=== PATIENT | male | born 1985 | race Caucasian/White ===

== ENCOUNTER 2024-04-15 10:43 | Inpatient (IN) | payer MEDICARE, MEDICAID, SELFPAY ==
[2024-04-15 10:44] VITALS: BP 90/78; PULSE 121; RESP 18; TEMP 36.1; O2SAT 96
--- NOTE | 2024-04-15 11:22 | RAD_ITS ---
STUDY: X-RAY - SKULL SHUNTOGRAM REASON FOR EXAM: Male, 39 years old. headaches, shunt TECHNIQUE: 2 views of the skull and 3 images of the chest, abdomen, and pelvis. COMPARISON: Head CT dated April 15, 2024 FINDINGS: The bilateral HOME IMPROVEMENT ADVISOR shunt catheter tubes are intact without evidence of fracture or significant kinking or displacement. Calcifications are seen around the tubing across the chest and abdomen regions. There is no demonstrated soft tissue swelling. Normal osseous calvarium. Normal visualized facial bones. Normal visualized paranasal sinuses. RAD/Shuntogram/Prev Placed Shunt IMPRESSION: Intact HOME IMPROVEMENT ADVISOR shunt catheters Electronically Signed: Sam Caicedo MD at 12:46 EDT ,
--- NOTE | 2024-04-15 11:22 | CT_ITS ---
STUDY: CT BRAIN WITHOUT CONTRAST REASON FOR EXAM: Male, 39 years old. torrez, lack of balance, ht shunt, hypotension, cerebral palsy RADIATION DOSAGE (If Supplied By Facility): CTDIvol = ( 44.99 ) mGy, DLP = ( 796.11 ) mGycm TECHNIQUE: Transaxial CT imaging of the brain was performed without administration of intravenous contrast material. Individualized dose optimization techniques were used for this CT. COMPARISON: None. FINDINGS: * Right and left REAL ESTATE SALES SUPERVISOR shunt catheters via craniotomy defects at the parieto-occipital junction. * The 2 REAL ESTATE SALES SUPERVISOR shunt catheters on the right terminates at the ostium of the occipital horn of lateral ventricle and on the left in the foramen Monro * Asymmetric hydrocephalus which is mild on the right and moderate on the left, although there is greater parenchymal volume loss on the left with hemicerebral atrophy and chronic hypodensity in the white matter interfaces-so this is probably] vacuo dilatation rather than completely hydrocephalus. * Significant dilatation of the fourth ventricle and global cerebellar atrophy * No visualized intracranial hemorrhage * No demonstrated acute infarct * No midline shift There is mucoperiosteal inflammatory disease of the paranasal sinuses consistent with mild chronic sinusitis. CT/Brain/Head without Contrast IMPRESSION: No acute process. Multitude of chronic abnormalities. I have no baseline or to make any comparisons or interval changes, referral to neurology or neurosurgery service for consultation is recommended.. Electronically Signed: Sam Caicedo MD at 12:37 EDT ,
--- NOTE | 2024-04-15 11:34 | EX.ED.DYSGE1 ---
HPI History of Present Illness Chief Complaint: Headache Informant: patient and friend Onset/Context/Timing Onset: Weeks Narrative Narrative: Patient presents secondary to headaches over the past 1 to 2 weeks. He reports generalized headache he has been taking chewable Tylenol for. He does have a history of cerebral palsy and has a shunt in place. He was seen by his neurologist this morning, Dr. Carpio. He was noted to have evidence of dehydration and hypotension and was sent to the emergency room. Dr. Carpio recommended lab work, CT scan, IV fluids. He does note the patient is on carbamazepine which may cause hyponatremia. Patient notes that he has not been eating and drinking much over the past week or 2 because he feels like his balance is off and he is afraid he will drop his food if he goes to the kitchen to get anything. [facility] Medical History Epilepsy Generalized seizure disorder Seizures Hydrocephalus Cerebral palsy Home Medications ?Medication ?Instructions ?Recorded ?Last Taken ?Type carbamazepine 100 mg chewable 250 mg (2.5 x 100 mg) PO TID #675 10/31/23 Unknown Rx tablet tabs mecobalamin (vitamin B12) 1,000 1,000 mcg PO DAILY #90 tabs 10/31/23 Unknown Rx mcg chewable tablet (B12 Active) Allergy/AdvReac Type Severity Reaction Status Date / Time No Known Allergies Allergy Verified 04/15/24 10:44 Social History Smoking Status: Never smoker second hand exposure: No alcohol intake: never substance use type: does not use what type of physical activity do you participate in: none jeannine/anabaptist: None seatbelt use: always do you feel safe at home: Yes ROS ROS ED Constitutional Constitutional ED: Denies chills or fever(s) Eyes Eyes: Denies discharge from eye(s) ENT ENT ED: Reports other Details: Dry mouth ; Denies discharge from eye(s), rhinorrhea or sore throat Cardiovascular Cardiovascular: Denies chest pain or palpitations Respiratory/Chest Respiratory/Chest: Denies cough or dyspnea Gastrointestinal Gastrointestinal: Denies abdominal pain, nausea or vomiting Musculoskeletal Musculoskeletal: Denies back pain or extremity pain Integumentary Denies Abrasions or rash Neurologic Neurologic: Reports headache(s), weakness and other Details: Generalized weakness Psychiatric Psychiatric: Denies anxiety or depression Allergic/Immunologic Allergic/Immunologic ED: Denies lip swelling or urticaria EXAM Physical Exam Const Vital Signs: 04/15/24 10:44 04/15/24 11:44 04/15/24 13:00 Temperature 97 F L Temperature Source Temporal Pulse Rate 121 H 90 85 Respiratory Rate 18 16 14 Blood Pressure 90/78 132/84 H 113/76 Blood Pressure Mean 82 100 88 Pulse Ox 96 98 98 Oxygen Delivery Method Room Air Room Air Room Air Constitutional Narrative: Patient thin and disheveled. HEENT Reports dry mucous membranes Mouth ED: Yes dry mucous membranes Mouth: dry mucous membranes Eyes EOMs intact bilaterally Chest Wall inspection of chest normal and palpation of chest normal Resp normal respiratory effort and clear to auscultation bilaterally Cardio Rate: tachycardic GI non-tender Palpation: soft Extremity normal to inspection Neuro oriented x3 Neuro Narrative: Generalized weakness but no focal neurologic deficits appreciated. Skin no rashes or lesions noted MDM MDM MDM Narrative Medical decision making narrative: IV line established. Patient given IV fluids along with 15 mg of IV ketorolac. CT scan of the head obtained to evaluate the shunt as well as a shuntogram. Labwork obtained to evaluate for leukocytosis, anemia, and electrolyte derangement. Carbamazepine level also obtained. Lab Data Attestation: I reviewed the patient's lab results. Labs: Laboratory Results - last 24 hr 04/15/24 11:45 WBC 7.9 RBC 5.61 Hgb 16.3 Hct 48.9 MCV 87.2 MCH 29.1 MCHC 33.3 RDW Std Deviation 39.2 RDW Coeff of Nidia 12.3 Plt Count 315 MPV 10.6 Immature Gran % (Auto) 0.400 Neut % (Auto) 72.7 H Lymph % (Auto) 19.3 [place] % (Auto) 7.0 Eos % (Auto) 0.0 Baso % (Auto) 0.6 Absolute Neuts (auto) 5.8 Absolute Lymphs (auto) 1.53 Nucleated RBC % 0 Sodium 146 H Potassium 4.0 Chloride 110 H Carbon Dioxide 17.0 L Anion Gap 19 H BUN 37 H Creatinine 1.61 H Estim Creat Clear Calc 42.62 Est GFR (MDRD) Af Amer 61 Est GFR (MDRD) Non-Af 50 L BUN/Creatinine Ratio 23.0 H Glucose 104 Calcium 10.3 H Total Bilirubin 0.80 Direct Bilirubin 0.22 AST 11 L ALT 20 Alkaline Phosphatase 92 Total Protein 8.3 H Albumin 4.5 Globulin 3.8 Carbamazepine 12.0 Radiography Diagnostic Testing: Clinical Impression(s) from Imaging Studies Brain CT 04/15/24 11:22 IMPRESSION: No acute process. Multitude of chronic abnormalities. I have no baseline or to make any comparisons or interval changes, referral to neurology or neurosurgery service for consultation is recommended.. Electronically Signed: Sam Caicedo MD at 12:37 EDT , Shuntogram 04/15/24 11:22 IMPRESSION: Intact KNITTER OPERATOR shunt catheters Electronically Signed: Sam Caicedo MD at 12:46 EDT , Treatment and Re-Evaluation :: CBC was normal white count 7.9 with a hemoglobin of 16.3. 72% neutrophils noted. Chemistry studies significant for a sodium of 146, chloride 110, bicarb 17. Anion gap is elevated at 19. BUN is 37 and creatinine is 1.61. LFTs are unremarkable. Carbamazepine level is therapeutic at 12. I was able to find prior labs drawn from April 19, 2023 in the computer. At that time his creatinine was 0.87. His sodium was 138. CT scan of the head today reveals no acute process. There is noted to be asymmetric hydrocephalus which is mild on the right and moderate on the left. Significant dilatation of the fourth ventricle and global cerebellar atrophy noted. No evidence of hemorrhage and no midline shift. We do not have prior imaging available for comparison, however I was able to find a head CT report from September 2018 which describes the same changes that are seen on today's CT. On repeat evaluation patient states his headache is improved. Patient was initially hypotensive and tachycardic on arrival. His heart rate is currently 85 with a blood pressure of 113/76. I do feel he will require observation at least overnight for hydration and repeat labs. I will speak with the hospitalist. Discharge Plan Dx/Rx/DC Orders Clinical Impression: Dehydration, RHEA (acute kidney injury), Headache Disposition Disposition: Acute Care Hospital [facility]
[2024-04-15] MEDS: 0.9% Normal Saline (1000mL) 1,000 ML 1000 ML IV (11:42)
[2024-04-15] MEDS: Ketorolac 15 MG/ML Vial IV (11:42)
[2024-04-15 11:44] VITALS: BP 132/84; PULSE 90; RESP 16; O2SAT 98; BMI 17.7
[2024-04-15 11:58] LABS: Absolute Lymphocyte Count 1.53 X10^3/uL (0.83-4.51); Absolute Neutrophil Count 5.8 X10^3/uL (2.0-7.7); Basophil# 0.05 X10^3/uL; Basophil% 0.6 % (0-1); Hematocrit 48.9 % (40-54); Hemoglobin 16.3 g/dL (13.0-16.5); Lymphocyte # 1.53 X10^3/ul (0.83-4.51); Lymphocyte % 19.3 % (19-41); Mean Corp Hgb Conc 33.3 g/dL (32-36); Mean Corpuscular Hgb 29.1 pg (27.0-32.0); Mean Corpuscular Volume 87.2 fL (80-94); Mean Platelet Vol. 10.6 fl (6.2-12.0); Monocyte# 0.55 X10^3/uL; NRBC Flagged by Analyzer 0 % (0-5); Neutrophil # 5.75 X10^3/uL (2.7-7.7); Neutrophil % 72.7 % (47-70); Platelet Count 315 K/mm3 (150-450); RBC Distribution Width CV 12.3 % (11.6-14.6); RBC Distribution Width SD 39.2 fl (35.1-43.9); Red Blood Count 5.61 M/mm3 (4.6-6.2); White Blood Count 7.9 K/mm3 (4.4-11.0)
[2024-04-15 12:16] LABS: AST(SGOT) 11 U/L (15-37); Alanine Aminotransfer ALT/SGPT 20 U/L (16-61); Albumin, Serum 4.5 g/dL (3.2-5.0); Alkaline Phosphatase 92 U/L (45-117); Anion Gap 19 (5-15); BUN 37 mg/dL (7-18); Bilirubin, Direct 0.22 mg/dL (0.00-0.30); Calcium,Total 10.3 mg/dL (8.5-10.1); Chloride 110 mmol/L (98-107); Creatinine, Serum 1.61 mg/dL (0.70-1.30); EST Glomerular Filtration Rate 50 mL/min (>60); Est Glom Filt Rate - Afr Amer 61 mL/min (>60); Estimated Creatinine Clearance 42.62 ml/min; Globulin 3.8 g/dL (2.2-4.2); Glucose 104 mg/dL (74-106); Protein, Total 8.3 g/dL (6.4-8.2); Sodium Level 146 mmol/L (136-145)
[2024-04-15 13:00] VITALS: BP 113/76; PULSE 85; RESP 14; O2SAT 98
[2024-04-15] MEDS: 0.9% Normal Saline (1000mL) 1,000 ML 150 ML IV ×3 (14:39→23:39)
--- NOTE | 2024-04-15 14:46 | NURSING ---
MED SURG OBS KORAM DEHYDRATION, RHEA
--- NOTE | 2024-04-15 14:47 | PCM.HP.STD ---
HPI - General General Date of Admission: 04/15/24 Date of Service: 04/15/24 Chief Complaint: headache HPI Narrative KATARINA SESAY, is a 39 M with a past medical history as outlined including history of cerebral palsy, and congenital hydrocephalus, with a BRINE TANK SEPARATOR OPERATOR shunt in place who presents via the ED on 04/15/2024 with a complaint of headache which have been going on for several days. He said the headache was mainly posterior and he also had assisted neck pain. He said movement aggravated the headache so he had not been eating or drinking much over the past couple of weeks prior to him coming in. His friend who is his caregiver called his neurologist this morning as he felt patient was not doing well. He went to see the neurologist who felt patient was dehydrated and hypotensive so he was sent into the ED. Patient denied any fever or chills and said he was concerned about falling at home as he felt his balance had been off that is why he had not been ambulating at home. He denied any nausea or vomiting or any other symptoms. His headache and neck pain had improved markedly by the time I reviewed him in the ED. Review of systems otherwise negative. Vitals in the ED were blood pressure of 121/69, pulse rate of 82, respiratory rate of 14 and temperature of 97.9 Fahrenheit. He was saturating at 100% on room air. CBC showed hemoglobin of 16.3 with WBC of 7.9 and platelets of 315. Chemistry showed sodium of 146 with bicarb of 17 and anion gap of 19 with creatinine of 1.61. Calcium was 10.3. CT of the brain showed no acute process and showed significant dilatation of the fourth ventricle and global cerebral atrophy with presence of 2 BRINE TANK SEPARATOR OPERATOR shunt catheters of the right elevated at the ostium of the occipital horn of the lateral ventricle and on the left and the carter more neuro and asymmetric hydrocephalus which was mild on the right and moderate on the left. He also had a shuntogram done which showed that the bilateral BRINE TANK SEPARATOR OPERATOR shunt catheter tubes were intact without evidence of fracture or kinking or displacement. He has been admitted to be managed for RHEA and anion gap metabolic acidosis likely starvation ketosis due to decreased intake. [facility] Medical History Epilepsy Generalized seizure disorder Seizures Hydrocephalus Cerebral palsy Home Medications ?Medication ?Instructions ?Recorded ?Last Taken ?Type carbamazepine 100 mg chewable 250 mg (2.5 x 100 mg) PO TID #675 10/31/23 Unknown Rx tablet tabs mecobalamin (vitamin B12) 1,000 1,000 mcg PO DAILY #90 tabs 10/31/23 Unknown Rx mcg chewable tablet (B12 Active) Allergy/AdvReac Type Severity Reaction Status Date / Time No Known Allergies Allergy Verified 04/15/24 10:44 Social History Smoking Status: Never smoker second hand exposure: No alcohol intake: never substance use type: does not use what type of physical activity do you participate in: none jeannine/anabaptism: None seatbelt use: always do you feel safe at home: Yes ROS Constitutional Constitutional: Reports anorexia, fatigue, malaise and weakness; Denies change in weight, chills or fever(s) Eyes Eyes: Denies change in vision ENT HEENT: Denies dysphagia or headache(s) Cardiovascular Cardiovascular: Denies chest pain, dyspnea on exertion, edema, lightheadedness, orthopnea, palpitations, paroxysmal nocturnal dyspnea, rapid heart rate or syncope Respiratory/Chest Respiratory/Chest: Denies cough, dyspnea, shortness of breath at rest or shortness of breath with exertion Gastrointestinal Gastrointestinal: Denies abdominal pain, constipation, diarrhea, dyspepsia, nausea or vomiting Musculoskeletal Musculoskeletal: Denies arthralgias, back pain, joint pain, joint stiffness or joint swelling Neurologic Neurologic: Reports headache(s); Denies confusion, dizziness, focal weakness, numbness, paresthesias, seizure-like activity, seizures, syncope, tingling or tremor(s) Psychiatric Psychiatric: Denies anxiety or depression Vital Signs Vital Signs Vital Signs: 04/15/24 10:44 04/15/24 11:44 04/15/24 13:00 Temperature 97 F L Temperature Source Temporal Pulse Rate 121 H 90 85 Respiratory Rate 18 16 14 Blood Pressure 90/78 132/84 H 113/76 Blood Pressure Mean 82 100 88 Pulse Ox 96 98 98 Oxygen Delivery Method Room Air Room Air Room Air Weight Weight: 110 lb 0.171 oz Body Mass Index (BMI) 17.7 Physical Exam Const alert, oriented x3 and no apparent distress Constitutional Narrative: Frail HEENT normocephalic HEENT Narrative: Has 2 palpable shunt on the right and left side of his head. Very dry mucous membranes. Eyes PERRL, EOMs intact bilaterally and conjunctivae normal Neck no lymphadenopathy, supple and no JVD Resp normal respiratory effort, no retractions, no use of accessory muscles and clear to auscultation bilaterally Cardio regular rate, regular rhythm, S1 normal heart sound, S2 normal heart sound and no murmurs GI normal to inspection, nondistended, normoactive bowel sounds, soft to palpation, non-tender and non-distended Extremity normal to inspection and no clubbing, cyanosis or edema Extremity Narrative: Has chronic contractures of his right upper extremity due to history of cerebral palsy Neuro oriented x3 Neuro Narrative: Kernig's and Brudzinski's sign's are negative. Sensorium / Orientation: awake and alert Psych Psych Narrative: flat affect Results Lab / Micro Data 04/15/24 11:45 04/15/24 11:45 Labs: Laboratory Results - last 24 hr 04/15/24 11:45: WBC 7.9, RBC 5.61, Hgb 16.3, Hct 48.9, MCV 87.2, MCH 29.1, MCHC 33.3, RDW Std Deviation 39.2, RDW Coeff of Nidia 12.3, Plt Count 315, MPV 10.6, Immature Gran % (Auto) 0.400, Neut % (Auto) 72.7 H, Lymph % (Auto) 19.3, [place] % (Auto) 7.0, Eos % (Auto) 0.0, Baso % (Auto) 0.6, Absolute Neuts (auto) 5.8, Absolute Lymphs (auto) 1.53, Nucleated RBC % 0, Sodium 146 H, Potassium 4.0, Chloride 110 H, Carbon Dioxide 17.0 L, Anion Gap 19 H, BUN 37 H, Creatinine 1.61 H, Estim Creat Clear Calc 42.62, Est GFR (MDRD) Af Amer 61, Est GFR (MDRD) Non-Af 50 L, BUN/Creatinine Ratio 23.0 H, Glucose 104, Calcium 10.3 H, Total Bilirubin 0.80, Direct Bilirubin 0.22, AST 11 L, ALT 20, Alkaline Phosphatase 92, Total Protein 8.3 H, Albumin 4.5, Globulin 3.8, Carbamazepine 12.0 Imaging Radiology Impression Brain CT 04/15/24 11:22 IMPRESSION: No acute process. Multitude of chronic abnormalities. I have no baseline or to make any comparisons or interval changes, referral to neurology or neurosurgery service for consultation is recommended.. Electronically Signed: Sam Caicedo MD at 12:37 EDT , Shuntogram 04/15/24 11:22 IMPRESSION: Intact BRINE TANK SEPARATOR OPERATOR shunt catheters Electronically Signed: Sam Caicedo MD at 12:46 EDT , Assessment & Plan Assessment/Plan (1) RHEA (acute kidney injury): (2) Dehydration: PLAN: Plan #RHEA Likely prerenal, due to decreased intake. He has not been eating or drinking well for the past few weeks because he felt he was not well-balanced on his feet and was concerned about falling. Creatinine is 1.61. There is no baseline in the EMR. Hydrated with IV fluid normal saline at 150 cc/h x 3 bags. Trend creatinine. If it does not improve then we will do further workup with urine electrolytes and renal ultrasound. #Anion gap metabolic acidosis: Likely due to starvation ketosis. Patient has not been eating or drinking for the past couple of weeks. Bicarb is 17 and anion gap is 19. RHEA could also be contributing. Should improve with hydration. #Hypernatremia and hypercalcemia: Both likely due to dehydration. Sodium is mildly elevated at 146 and calcium is 10.3. Expect both to improve with hydration. #Headache: Patient has a history of congenital hydrocephalus and started having headache about 2 weeks ago. Headaches have virtually resolved by the time I reviewed patient. Kernig's and Brudzinski's sign's are negative. He does not have a fever as well. CT of the brain showed no acute process and showed significant dilatation of the fourth ventricle and global cerebral atrophy with presence of 2 BRINE TANK SEPARATOR OPERATOR shunt catheters of the right elevated at the ostium of the occipital horn of the lateral ventricle and on the left and the carter more neuro and asymmetric hydrocephalus which was mild on the right and moderate on the left. He also had a shuntogram done which showed that the bilateral BRINE TANK SEPARATOR OPERATOR shunt catheter tubes were intact without evidence of fracture or kinking or displacement. Consult neurology to review patient. Since that shuntogram showed that the shunts were intact, will wait for neurology evaluation. I do not see any clear reason for transfer now. Patient has not seen a neurosurgeon and had a shunt evaluated in over a decade. He states he is to follow-up with [facility] where he was much younger but has not done so as he does not remember being transitioned to an adult neurosurgeon. #History of seizures: on carbamazepine #History of cerebral palsy: Has contractures of the right upper extremity as a result of cerebral palsy. Consult PT OT. Fall precautions. CODE STATUS: Full code # Charges/Coding Visit Charges Inpatient E&M: 51877 Init Hosp L3
[2024-04-15 15:05] VITALS: BP 112/62; PULSE 74; RESP 16; TEMP 36.2; O2SAT 95
[2024-04-15 15:33] VITALS: BP 121/69; PULSE 82; RESP 14; TEMP 36.6; O2SAT 100; BMI 21.2
[2024-04-15 22:00] VITALS: BP 118/66; PULSE 97; RESP 16; TEMP 36.4; O2SAT 100
[2024-04-15] MEDS: Acetaminophen 325 MG Tablet 650 MG PO (23:52)
[2024-04-16] MEDS: Morphine 2 MG/ML Syringe IV ×4 (02:05→17:24)
[2024-04-16] MEDS: 0.9% Saline Lock 10 ML Syringe IV ×3 (02:07→20:31)
[2024-04-16 03:59] VITALS: BP 130/66; PULSE 75; RESP 16; TEMP 36.7; O2SAT 100
[2024-04-16] MEDS: 0.9% Normal Saline (1000mL) 1,000 ML 150 ML IV ×3 (06:33→19:54)
[2024-04-16 07:45] LABS: Absolute Lymphocyte Count 1.51 X10^3/uL (0.83-4.51); Absolute Neutrophil Count 3.2 X10^3/uL (2.0-7.7); Basophil# 0.04 X10^3/uL; Basophil% 0.8 % (0-1); Eosinophil# 0.02 X10^3/uL; Eosinophils% 0.4 % (0-5); Hematocrit 38.4 % (40-54); Hemoglobin 12.7 g/dL (13.0-16.5); Lymphocyte # 1.51 X10^3/ul (0.83-4.51); Lymphocyte % 29.4 % (19-41); Mean Corp Hgb Conc 33.1 g/dL (32-36); Mean Corpuscular Hgb 29.5 pg (27.0-32.0); Mean Corpuscular Volume 89.3 fL (80-94); Mean Platelet Vol. 10.6 fl (6.2-12.0); Monocyte# 0.37 X10^3/uL; Monocyte% 7.2 % (0-10); NRBC Flagged by Analyzer 0 % (0-5); Neutrophil # 3.18 X10^3/uL (2.7-7.7); Neutrophil % 61.8 % (47-70); Platelet Count 186 K/mm3 (150-450); RBC Distribution Width CV 12.4 % (11.6-14.6); RBC Distribution Width SD 40.4 fl (35.1-43.9); White Blood Count 5.1 K/mm3 (4.4-11.0)
[2024-04-16 08:32] LABS: Anion Gap 6 (5-15); BUN 24 mg/dL (7-18); BUN/Creat Ratio 25.2 RATIO (10-20); Calcium,Total 7.6 mg/dL (8.5-10.1); Chloride 120 mmol/L (98-107); Creatinine, Serum 0.95 mg/dL (0.70-1.30); EST Glomerular Filtration Rate 92 mL/min (>60); Est Glom Filt Rate - Afr Amer 112 mL/min (>60); Estimated Creatinine Clearance 86.41 ml/min; Glucose 108 mg/dL (74-106); Potassium 3.7 mmol/L (3.5-5.1); Sodium Level 146 mmol/L (136-145)
--- NOTE | 2024-04-16 10:06 | CON.PCM.NE_ITS ---
Assessment and Plan: Neuro Assessment/Plan KATARINA SESAY is a 39 M with a past medical hi HPI Consult Data Date of Consult: 04/16/24 HPI Narrative HPI Narrative: KATARINA SESAY, is a 39 M who presents [facility] Medical History Epilepsy Generalized seizure disorder Seizures Hydrocephalus Cerebral palsy Home Medications ?Medication ?Instructions ?Recorded ?Last Taken ?Type carbamazepine 100 mg chewable 250 mg (2.5 x 100 mg) PO TID #675 10/31/23 Unknown Rx tablet tabs mecobalamin (vitamin B12) 1,000 1,000 mcg PO DAILY #90 tabs 10/31/23 Unknown Rx mcg chewable tablet (B12 Active) Allergy/AdvReac Type Severity Reaction Status Date / Time No Known Allergies Allergy Verified 04/15/24 10:44 Social History Smoking Status: Never smoker second hand exposure: No alcohol intake: never substance use type: does not use what type of physical activity do you participate in: none jeannine/orthodox: None seatbelt use: always do you feel safe at home: Yes Vital Signs Vital Signs Vital Signs: 04/15/24 10:44 04/15/24 11:44 04/15/24 13:00 Temperature 97 F L Temperature Source Temporal Pulse Rate 121 H 90 85 Pulse Strength Respiratory Rate 18 16 14 Respiratory Effort Respiratory Depth Respiratory Pattern Blood Pressure 90/78 132/84 H 113/76 Blood Pressure Mean 82 100 88 Blood Pressure Source Blood Pressure Position Blood Pressure Location Pulse Ox 96 98 98 Oxygen Delivery Method Room Air Room Air Room Air 04/15/24 15:05 04/15/24 15:33 04/15/24 22:00 Temperature 97.2 F L 97.9 F 97.5 F L Temperature Source Oral Temporal Pulse Rate 74 82 97 Pulse Strength Respiratory Rate 16 14 16 Respiratory Effort Respiratory Depth Respiratory Pattern Blood Pressure 112/62 121/69 H 118/66 Blood Pressure Mean 78 86 83 Blood Pressure Source Monitor Monitor Blood Pressure Position Semi-Fowlers Semi-Fowlers Blood Pressure Location Left Arm Right Arm Pulse Ox 95 100 100 Oxygen Delivery Method Room Air Room Air 04/15/24 22:00 04/15/24 22:00 04/16/24 02:00 Temperature Temperature Source Pulse Rate Pulse Strength Normal (2+) Respiratory Rate Respiratory Effort Normal Non-Labored Normal Non-Labored Respiratory Depth Normal Respiratory Pattern Normal Blood Pressure Blood Pressure Mean Blood Pressure Source Blood Pressure Position Blood Pressure Location Pulse Ox Oxygen Delivery Method Room Air Room Air 04/16/24 03:59 Temperature 98.0 F Temperature Source Temporal Pulse Rate 75 Pulse Strength Respiratory Rate 16 Respiratory Effort Respiratory Depth Respiratory Pattern Blood Pressure 130/66 H Blood Pressure Mean 87 Blood Pressure Source Monitor Blood Pressure Position Semi-Fowlers Blood Pressure Location Right Arm Pulse Ox 100 Oxygen Delivery Method Room Air Weight Weight: 59.7 kg Body Mass Index (BMI) 21.2 EEG Results Procedure Details EEG Procedure Details: KATARINA SESAY is a 39 year old M with a past medical history of , who presents for evaluation of Electroencephalogram on DATE at TIME Lab / Micro Data 04/16/24 07:15 04/16/24 07:15 Labs: Laboratory Results - last 24 hr 04/15/24 11:45: WBC 7.9, RBC 5.61, Hgb 16.3, Hct 48.9, MCV 87.2, MCH 29.1, MCHC 33.3, RDW Std Deviation 39.2, RDW Coeff of Nidia 12.3, Plt Count 315, MPV 10.6, Immature Gran % (Auto) 0.400, Neut % (Auto) 72.7 H, Lymph % (Auto) 19.3, [place] % (Auto) 7.0, Eos % (Auto) 0.0, Baso % (Auto) 0.6, Absolute Neuts (auto) 5.8, Absolute Lymphs (auto) 1.53, Nucleated RBC % 0, Sodium 146 H, Potassium 4.0, C hloride 110 H, Carbon Dioxide 17.0 L, Anion Gap 19 H, BUN 37 H, Creatinine 1.61 H, Estim Creat Clear Calc 42.62, Est GFR (MDRD) Af Amer 61, Est GFR (MDRD) Non- Af 50 L, BUN/Creatinine Ratio 23.0 H, Glucose 104, Calcium 10.3 H, Total Bilirubin 0.80, Direct Bilirubin 0.22, AST 11 L, ALT 20, Alkaline Phosphatase 92, Total Protein 8.3 H, Albumin 4.5, Globulin 3.8, Carbamazepine 12.0 04/16/24 07:15: WBC 5.1, RBC 4.30 L, Hgb 12.7 L, Hct 38.4 L, MCV 89.3, MCH 29.5, MCHC 33.1, RDW Std Deviation 40.4, RDW Coeff of Nidia 12.4, Plt Count 186, MPV 10.6, Immature Gran % (Auto) 0.400, Neut % (Auto) 61.8, Lymph % (Auto) 29.4, [place] % (Auto) 7.2, Eos % (Auto) 0.4, Baso % (Auto) 0.8, Absolute Neuts (auto) 3.2, Absolute Lymphs (auto) 1.51, Nucleated RBC % 0, Sodium 146 H, Potassium 3.7, Chloride 120 H, Carbon Dioxide 20.0 L, Anion Gap 6, BUN 24 H, Creatinine 0.95, Estim Creat Clear Calc 86.41, Est GFR (MDRD) Af Amer 112, Est GFR (MDRD) Non-Af 92, BUN/Creatinine Ratio 25.2 H, Glucose 108 H, Calcium 7.6 L Imaging Radiology Impression Brain CT 04/15/24 11:22 IMPRESSION: No acute process. Multitude of chronic abnormalities. I have no baseline or to make any comparisons or interval changes, referral to neurology or neurosurgery service for consultation is recommended.. Electronically Signed: Sam Caicedo MD at 12:37 EDT Reading Location ID and State: [facility] / [place] , Service support , Shuntogram 04/15/24 11:22 IMPRESSION: Intact DATA CONTROL CLERK shunt catheters Electronically Signed: Sam Caicedo MD at 12:46 EDT , Active Medications Active Medications Active Medications: Current Medications Generic Name Dose Route Start Last Admin Trade Name Freq PRN Reason Stop Dose Admin Acetaminophen 650 mg 04/15/24 15:32 04/15/24 23:52 Acetaminophen 325 Mg Tablet PO 650 mg Q6H PRN PRN Administration Pain 1-10 Or Fever >100.7 Carbamazepine 250 mg 04/15/24 22:00 04/16/24 04:21 Carbamazepine 200 Mg/10 Ml [facility] ([facility]) PO Not Given TID [facility] Cyanocobalamin 1,000 mcg 04/16/24 10:00 Cyanocobalamin 500 Mcg Tablet PO DAILY [facility] Enoxaparin Sodium 40 mg 04/16/24 10:00 Enoxaparin 40 Mg/0.4 Ml Syringe SC DAILY [facility] Sodium Chloride 1,000 mls @ 150 mls/hr 04/15/24 11:25 04/16/24 06:33 IV 150 mls/hr .[id number] [facility] Administration Sodium Chloride 250 mls @ 15 mls/hr 04/15/24 16:40 IV .[id number] PRN Saline Flush Morphine Sulfate 2 - 4 mg 04/15/24 15:32 04/16/24 05:11 Morphine 2 Mg/Ml Syringe IV 4 mg Q3H PRN PRN Administration Pain Score 6-10 Morphine Sulfate 2 - 4 mg 04/15/24 15:38 Morphine 4 Mg/Ml Syringe IV Q3H PRN PRN Pain Score 6-10 Nitroglycerin 0.4 mg 04/15/24 15:32 Nitroglycerin (Inpatient Use) 0.4 Mg Tab.Subl SL Q5M PRN CARDIAC/CHEST PAIN Ondansetron HCl 4 mg 04/15/24 15:32 Ondansetron 4 Mg/2 Ml Vial IV Q8H PRN PRN NAUSEA/VOMITING Oxycodone HCl 5 mg 04/15/24 15:32 Oxycodone 5 Mg Tablet PO Q4H PRN PRN Pain Score 4-10 Sodium Chloride 10 - 40 ml 04/15/24 16:40 04/16/24 05:11 0.9% Saline Lock 10 Ml Syringe IV 10 ml UD PRN Administration SALINE FLUSH
[2024-04-16 10:37] VITALS: BP 111/74; PULSE 68; RESP 12; TEMP 36.3; O2SAT 100
--- NOTE | 2024-04-16 12:42 | DS.PCM_ITS ---
Providers Date of Admission: 04/15/24 Date of Discharge: 04/16/24 Primary Care Physician: Dr. Guanaco Kay MD Consultations 04/15/24 17:14 Neurology [Consult: Tele-Neurology] Routine Consulting Provider: [facility] Reason for Consult: headache, has MACHINE PLATE STACKER shunts due to chronic hydrocephalus EMERGENT Consult: No MD Notified: Yes Date Notified: 04/15/24 Time Notified: 17:40 Method of Notification: Answering Service Nursing Unit Staff Notify [facility] of Tele-Neurology Consult: Yes Reason For Visit: HEADACHE, RHEA Diagnosis Discharge Diagnosis (1) RHEA (acute kidney injury): Status: Acute Code(s): N17.9 - Acute kidney failure, unspecified (2) Dehydration: Status: Acute Code(s): E86.0 - Dehydration Medications at Discharge Home Medications carbamazepine 100 mg chewable tablet 250 mg (2.5 x 100 mg) PO TID #675 tabs 10/31/23 mecobalamin (vitamin B12) 1,000 mcg chewable tablet (B12 Active) 1,000 mcg PO DAILY #90 tabs 10/31/23 Hospital Course Operations None Procedures - (CT brain/shuntogram) Summary of Care Provided Minutes Spent on Discharge: 36 Hospital Course: Mr. Ricketts is a 39-year-old white male who presented to the emergency department at [facility] on 04/15/2024 with a headache. He has a history of cerebral palsy and congenital hydrocephalus for which she has a MACHINE PLATE STACKER shunt. His last shunt revision was when he was 4 years old. He now follows with Dr. Kay here in [place] for his neurology care. On presentation he indicated that the headache was mainly in the back of his head and associate with some persistent neck pain. He also reported movement aggravated his headache and he had not been able to eat or drink much over the past couple weeks. His friend who is with him and is also his caregiver had called his neurologist on the morning of presentation because he felt the patient was not doing well and he was concerned. He went to see the neurologist who felt the patient was dehydrated and hypotensive so he referred him to the emergency department. The patient denies any fever or chills but reported his balance had been off as well and that is why he had not been walking as much at home. He denied any nausea and vomiting at the time presentation and his headache had improved with treatment in the emergency department. Vital signs were unremarkable on presentation and he was afebrile. His CBC was unremarkable. Chemistry panel showed hemoconcentration with starvation ketosis with hypernatremia, hyperchloremia, serum bicarb of 17 with an elevated anion gap, BUN of 37 and serum creatinine of 1.61. He appeared markedly dehydrated. After IV fluid administration his creatinine normalized as did his anion gap and his carbon dioxide trended up to 20. Imaging in the emergency department showed no acute process but did demonstrate a multitude of chronic abnormalities with no baseline for comparison and referral to neurology and neurosurgery was recommended. They did comment on asymmetric hydrocephalus which was mild on the right and moderate on the left as well as significant dilation of the fourth ventricle but no midline shift or visualized intracranial hemorrhage. A shuntogram was performed and showed intact MACHINE PLATE STACKER shunt catheters. On admission neurology was consulted and evaluated the patient on the a.m. of 04/16/2024. I did receive a call from Dr. Shine from [facility] teleneurology and she indicated that she was concern for shunt now functioning and worsening hydrocephalus so she recommended transfer for neurosurgical evaluation. The patient was [facility] on 04/16/2024. Discharge diagnoses: Headache Balance issues Hydrocephalus Concern for shunt malfunctioning Seizure disorder Dehydration RHEA-resolved Starvation ketosis-resolved History of cerebral palsy with chronic right upper extremity and right lower extremity contractures Physical Exam Narrative Patient states he is still having headache and p.o. intake has been poor. Nursing reports that he refused breakfast this morning. Const alert and no apparent distress; Negative for no limitations, healthy appearing or well nourished Constitutional Narrative: Thin, middle-aged, white male, sitting up in bed and seizure precautions, appears comfortable, does not appear toxic General Appearance: cooperative, comfortable, well kempt and well developed Orientation / Consciousness: awake and oriented to person Exam Limitations: physical limitations and other limitations Nutritional Appearance: thin HEENT normocephalic, head/scalp atraumatic, hearing grossly normal bilaterally and moist oral mucous membranes HEENT Narrative: Dentition is fair, Mallampati is 1, no thrush Eyes PERRL, EOMs intact bilaterally and conjunctivae normal Eyes Narrative: No scleral icterus Neck no lymphadenopathy and supple Neck Narrative: Neck veins are flat, trachea midline, no thyroid enlargement Resp normal respiratory effort, no retractions, no use of accessory muscles and clear to auscultation bilaterally Auscultation: Negative for rales, rhonchi or wheezes Cardio regular rate, regular rhythm, S1 normal heart sound, S2 normal heart sound, no murmurs, no rub, no gallops and no clicks GI normal to inspection, nondistended, normoactive bowel sounds, soft to palpation and non-tender Skin no rashes or lesions noted, no wounds, skin turgor normal and no jaundice Neuro No no focal motor deficits Neuro Narrative: Speech is clear but response times are slow, right upper extremity and left lower extremity contractures are noted Sensorium / Orientation: awake, alert and oriented to person Speech: Negative for speech normal Psych affect normal Psych Narrative: Very pleasant but frustrated that he needs to be transferred Weight / BMI Weight Weight: 59.7 kg Body Mass Index (BMI) 21.2 ABG / Lab / Microbiology Data 04/16/24 07:15 04/16/24 07:15 Laboratory: Laboratory Results - last 24 hr 04/16/24 07:15: WBC 5.1, RBC 4.30 L, Hgb 12.7 L, Hct 38.4 L, MCV 89.3, MCH 29.5, MCHC 33.1, RDW Std Deviation 40.4, RDW Coeff of Nidia 12.4, Plt Count 186, MPV 10.6, Immature Gran % (Auto) 0.400, Neut % (Auto) 61.8, Lymph % (Auto) 29.4, [place] % (Auto) 7.2, Eos % (Auto) 0.4, Baso % (Auto) 0.8, Absolute Neuts (auto) 3.2, Absolute Lymphs (auto) 1.51, Nucleated RBC % 0, Sodium 146 H, Potassium 3.7, Chloride 120 H, Carbon Dioxide 20.0 L, Anion Gap 6, BUN 24 H, Creatinine 0.95, Estim Creat Clear Calc 86.41, Est GFR (MDRD) Af Amer 112, Est GFR (MDRD) Non-Af 92, BUN/Creatinine Ratio 25.2 H, Glucose 108 H, Calcium 7.6 L Radiography Diagnostic Testing: Radiology Impression Brain CT 04/15/24 11:22 IMPRESSION: No acute process. Multitude of chronic abnormalities. I have no baseline or to make any comparisons or interval changes, referral to neurology or neurosurgery service for consultation is recommended.. Electronically Signed: Sam Caicedo MD at 12:37 EDT , Shuntogram 04/15/24 11:22 IMPRESSION: Intact MACHINE PLATE STACKER shunt catheters Electronically Signed: Sam Caicedo MD at 12:46 EDT , Meaningful Use Info Meaningful Use Meaningful Use Diagnoses (Choose all that apply): None applicable Ischemic Stroke Statin Dosing Therapy Reference: STATIN DOSE THERAPY REFERENCE: * Patients > 75 years receive moderate or high dose statin therapy. * Patients 75 years or YOUNGER should receive HIGH intensity statin dose unless contraindicated. You will be required to document reason for non-treatment if statin daily dose does not meet guidelines. HIGH DOSE STATIN THERAPY DAILY Atorvastatin > than or = to 40 mg Rosuvastatin > than or = to 20 mg Amlodipine + Atorvastatin > than or = to 2.5/40 mg Ezetimibe + Simvastatin 10/80 mg Simvastatin 80mg Discharge Plan Admission Admit Date/Time: 04/15/24 14:42 Primary Reason for Your Visit: Headache/dehydration/poor appetite Attending Provider: Renuka Chavez Primary Care Provider: Guanaco Kay Consulting Providers: Jamie Carey; Lisbet Capone; Neeta White; Jacinta Montiel; Jenna Lunsford; Brannon Dominguez; Sury Rae; Hernandez Yoo; Ezekiel Francis; Marilee Thomas; Raimundo Merrill; Jazmine Shine; Avelina Cates; Florida Kerr; Klaus Vogt; Rubi Mujica; Ken Strange; Bess Chavez; Quinton Aleman; Di Eugene Discharge Orders/Prescriptions Prescriptions: No Action carbamazepine 100 mg tablet,chewable 250 mg PO TID Qty: 675 2RF B12 Active 1,000 mcg tablet,chewable 1,000 mcg PO DAILY Qty: 90 2RF Referrals / Follow Up: Guanaco Kay MD [Primary Care Provider] - Disposition Disposition (needs filled in before D/C Order can be placed): Acute Care Hospital Charges/Coding Visit Charges Inpatient E&M: 02235 Disch Hosp >30min
[2024-04-16] MEDS: carBAMazepine 200 MG/10 ML UDC (WCH) 250 MG PO ×2 (14:16→22:14)
--- NOTE | 2024-04-16 14:29 | CHAPLAIN ---
Type of Pastoral Visit _x__ Initial Visit ___ Follow-up Visit ___ On-call Visit ___ General Patient Visit ___ Spiritual Assessment ___ Family Conference ___ Bereavement ___ Rapid Response ___ Code Blue ___ Other (describe below) Pastoral Care Referral From _x__ Patient ___ Family ___ Nurse ___ Physician ___ Body Shop Manager ___ Cow Tender ___ Other (describe below) Sacrament/Intervention ___ Active listening ___ Anointing ___ Congregational ___ Bereavement ___ Communion ___ Lorraine exploration ___ ___ Life review ___ Prayer ___ Reconciliation ___ Sacrament of Sick _x__ Supportive presence ___ Wedding ___ Other (describe below) Pastoral Comments patient is resting but awakens easily to his name; pt says that he has no needs and his goal right now is to rest;offer of future support given as desired
[2024-04-16 17:21] VITALS: BP 113/73; PULSE 68; RESP 12; TEMP 36.6; O2SAT 100
[2024-04-16] MEDS: Morphine 4 MG/ML Syringe IV (20:26)
[2024-04-16] MEDS: Acetaminophen 325 MG Tablet 650 MG PO (22:19)
[2024-04-16 22:20] VITALS: BP 126/71; PULSE 72; RESP 16; TEMP 36.8; O2SAT 100
[2024-04-16] MEDS: oxyCODONE 5 MG Tablet PO (22:20)
[2024-04-17] MEDS: 0.9% Normal Saline (1000mL) 1,000 ML 150 ML IV ×2 (02:28→09:30)
[2024-04-17 03:24] VITALS: BP 148/88; PULSE 78; RESP 16; TEMP 36.6; O2SAT 100
[2024-04-17] MEDS: oxyCODONE 5 MG Tablet PO (04:38)
[2024-04-17] MEDS: Acetaminophen 325 MG Tablet 650 MG PO (04:39)
[2024-04-17] MEDS: carBAMazepine 200 MG/10 ML UDC (WCH) 250 MG PO (06:40)
[2024-04-17] MEDS: Morphine 4 MG/ML Syringe IV (06:51)
--- NOTE | 2024-04-17 07:58 | NURSING ---
I called [facility] to get an update on patients bed status, patient has been accepted and is just waiting on discharges from [facility] for a bed.
[2024-04-17 08:10] VITALS: BP 117/76; PULSE 58; RESP 14; TEMP 36.6; O2SAT 100
--- NOTE | 2024-04-17 10:37 | CON.PCM.NE_ITS ---
Assessment and Plan: Neuro Assessment/Plan KATARINA SESAY is a 39 M with a past medical history of CP being evaluated by Teleneurology for new onset headache. Had STORAGE MANAGER shunt because of congenital hydrocephalous. Reviewed CT head that showed concern for asymmetrical hydrocephalous however unfortunately there are no CT scan in t he past for comparison. Given new onset headache, I would recommend neurosurgery evaluation however shuntogram was normal but I still have concern for underdrainage and may need adjustment. For symptomatic headache control ,recommend 50 mg Benadryl , 500 mg Depakote and 500 mg IV solumedrol once. If headache persist recommend ,repeating 500 mg Depakote along with magnesium supplementation and Toradol. If persist , can start Topamax 25 mg followed by 50 mg thereafter. Diagnosis: New onset headache, concern for draining STORAGE MANAGER shunt. Plan:as outlined above Transfer to [facility] for the following reasons: neurosurgery evaluation I personally attended this patient and spent a total time of 50 minutes evaluating this patient including clinical assessment, review of chart, medical history imaging, and determining appropriate treatment and workup. [facility] HPI Consult Data Date of Consult: 04/17/24 HPI Narrative Reason for Consultation: Headache HPI Narrative: 39 M with a past medical history as outlined including history of cerebral palsy, and congenital hydrocephalus, with a STORAGE MANAGER shunt in place who presents via the ED on 04/15/2024 with a complaint of headache which have been going on for several days. He said the headache was mainly posterior and he also had assisted neck pain. At times it is frontal nand sharp .No clear positional component. He said movement aggravated the headache so he had not been eating or drinking much over the past couple of weeks prior to him coming in. Vitals in the ED were blood pressure of 121/69, pulse rate of 82, respiratory rate of 14 and temperature of 97.9 Fahrenheit. He was saturating at 100% on room air. CBC showed hemoglobin of 16.3 with WBC of 7.9 and platelets of 315. Chemistry showed sodium of 146 with bicarb of 17 and anion gap of 19 with creatinine of 1.61. Calcium was 10.3. CT of the brain showed no acute process and showed significant dilatation of the fourth ventricle and global cerebral atrophy with presence of 2 STORAGE MANAGER shunt catheters of the right elevated at the ostium of the occipital horn of the lateral ventricle and on the left and the carter more neuro and asymmetric hydrocephalus which was mild on the right and moderate on the left. He also had a shuntogram done which showed that the bilateral STORAGE MANAGER shunt catheter tubes were intact without evidence of fracture or kinking or displacement. [facility] Medical History Epilepsy Generalized seizure disorder Seizures Hydrocephalus Cerebral palsy Home Medications ?Medication ?Instructions ?Recorded ?Last Taken ?Type carbamazepine 100 mg chewable 250 mg (2.5 x 100 mg) PO TID #675 10/31/23 Unknown Rx tablet tabs mecobalamin (vitamin B12) 1,000 1,000 mcg PO DAILY #90 tabs 10/31/23 Unknown Rx mcg chewable tablet (B12 Active) Allergy/AdvReac Type Severity Reaction Status Date / Time No Known Allergies Allergy Verified 04/15/24 10:44 Social History Smoking Status: Never smoker second hand exposure: No alcohol intake: never substance use type: does not use what type of physical activity do you participate in: none jeannine/pentecostalism: None seatbelt use: always do you feel safe at home: Yes Vital Signs Vital Signs Vital Signs: 04/16/24 17:21 04/16/24 19:54 04/16/24 22:00 Temperature 97.8 F Temperature Source Oral Pulse Rate 68 Pulse Strength Normal (2+) Respiratory Rate 12 Respiratory Effort Normal Non-Labored Respiratory Depth Normal Respiratory Pattern Normal Blood Pressure 113/73 Blood Pressure Mean 86 Blood Pressure Source Monitor Blood Pressure Position Sitting Blood Pressure Location Right Arm Pulse Ox 100 Oxygen Delivery Method Room Air Room Air 04/16/24 22:20 04/17/24 02:47 04/17/24 03:24 Temperature 98.2 F 97.9 F Temperature Source Oral Oral Pulse Rate 72 78 Pulse Strength Respiratory Rate 16 16 Respiratory Effort Normal Non-Labored Respiratory Depth Normal Respiratory Pattern Normal Blood Pressure 126/71 H 148/88 H Blood Pressure Mean 89 108 Blood Pressure Source Monitor Monitor Blood Pressure Position Supine Supine Blood Pressure Location Right Arm Right Arm Pulse Ox 100 100 Oxygen Delivery Method Room Air Room Air Room Air 04/17/24 08:10 Temperature 97.8 F Temperature Source Oral Pulse Rate 58 L Pulse Strength Respiratory Rate 14 Respiratory Effort Respiratory Depth Respiratory Pattern Blood Pressure 117/76 Blood Pressure Mean 89 Blood Pressure Source Monitor Blood Pressure Position Sitting Blood Pressure Location Right Arm Pulse Ox 100 Oxygen Delivery Method Room Air Weight Weight: 59.7 kg Body Mass Index (BMI) 21.2 EEG Results Procedure Details EEG Procedure Details: KATARINA SESAY is a 39 year old M with a past medical history of , who presents for evaluation of Electroencephalogram on DATE at TIME Physical Exam Neuro Neuro Narrative: -? General: Laying comfortably in bed; in no acute distress. -? HENT: Normal oropharynx and mucosa. Normal external appearance of ears and nose. Exophthalmos. -? Neck: Supple, no pain or tenderness -? CV:? No peripheral edema. -? Pulmonary:? Normal respiratory effort. -? Ext: No cyanosis, edema, or deformity -? Skin: No rash. Normal palpation of skin.? -? Musculoskeletal: full range of motion; no joint tenderness. Normal digits and nails by inspection. No clubbing. -? NEURO: -? Mental Status: The patient was alert and oriented to time, place, and person. Normal recent/remote memory, concentration, and general fund of knowledge. -? Language: speech is fluent.? Naming, repetition, fluency, and comprehension intact. -? Cranial Nerves: PERRL 3 mm/brisk. EOMI, visual white full, no facial asymmetry, facial sensation intact, hearing intact, tongue midline, no evidence of atrophy or fibrillations. As performed by the nurse. Sternocleidomastoid and trapezius were equally strong. Soft palate raises equally, no uvular deviations -? Motor: Right upper extremity weakness and contracture, lower extremities equal bilaterally. -?? l R L -? Detailed reflex exam as performed by the nurse/NEVILLE and witnessed by the physician: l R L -? Tone: right upper extremity contracture -? Sensation- Intact to light touch bilaterally -? Coordination: No dysmetria on [id number], finger follow finger or [id number]. -? Gait- deferred Lab / Micro Data 04/16/24 07:15 04/16/24 07:15 Active Medications Active Medications Active Medications: Current Medications Generic Name Dose Route Start Last Admin Trade Name Freq PRN Reason Stop Dose Admin Acetaminophen 650 mg 04/15/24 15:32 04/17/24 04:39 Acetaminophen 325 Mg Tablet PO 650 mg Q6H PRN PRN Administration Pain 1-10 Or Fever >100.7 Carbamazepine 250 mg 04/17/24 14:00 Carbamazepine 100 Mg Tab.Chew PO TID [place] Cyanocobalamin 1,000 mcg 04/18/24 10:00 Cyanocobalamin (Vitamin B-12) 1,000 Mcg Tablet PO DAILY [facility] Enoxaparin Sodium 40 mg 04/16/24 10:00 04/17/24 08:14 Enoxaparin 40 Mg/0.4 Ml Syringe SC Not Given DAILY [place] Sodium Chloride 1,000 mls @ 150 mls/hr 04/15/24 11:25 04/17/24 09:41 IV 75 mls/hr .Q6H40M [facility] Infusion Sodium Chloride 250 mls @ 15 mls/hr 04/15/24 16:40 IV .[id number] PRN Saline Flush Morphine Sulfate 2 - 4 mg 04/15/24 15:32 04/16/24 17:24 Morphine 2 Mg/Ml Syringe IV 2 mg Q3H PRN PRN Administration Pain Score 6-10 Morphine Sulfate 2 - 4 mg 04/15/24 15:38 04/17/24 06:51 Morphine 4 Mg/Ml Syringe IV 4 mg Q3H PRN PRN Administration Pain Score 6-10 Nitroglycerin 0.4 mg 04/15/24 15:32 Nitroglycerin (Inpatient Use) 0.4 Mg Tab.Subl SL Q5M PRN CARDIAC/CHEST PAIN Ondansetron HCl 4 mg 04/15/24 15:32 Ondansetron 4 Mg/2 Ml Vial IV Q8H PRN PRN NAUSEA/VOMITING Oxycodone HCl 5 mg 04/15/24 15:32 04/17/24 04:38 Oxycodone 5 Mg Tablet PO 5 mg Q4H PRN PRN Administration Pain Score 4-10 Sodium Chloride 10 - 40 ml 04/15/24 16:40 04/16/24 20:31 0.9% Saline Lock 10 Ml Syringe IV 10 ml UD PRN Administration SALINE FLUSH
[2024-04-17 13:33] LABS: Absolute Lymphocyte Count 1.37 X10^3/uL (0.83-4.51); Absolute Neutrophil Count 4.2 X10^3/uL (2.0-7.7); Basophil# 0.03 X10^3/uL; Basophil% 0.5 % (0-1); Hematocrit 35.7 % (40-54); Hemoglobin 12.1 g/dL (13.0-16.5); Lymphocyte # 1.37 X10^3/ul (0.83-4.51); Lymphocyte % 23.1 % (19-41); Mean Corp Hgb Conc 33.9 g/dL (32-36); Mean Corpuscular Hgb 29.3 pg (27.0-32.0); Mean Corpuscular Volume 86.4 fL (80-94); Mean Platelet Vol. 10.8 fl (6.2-12.0); Monocyte# 0.39 X10^3/uL; Monocyte% 6.6 % (0-10); NRBC Flagged by Analyzer 0 % (0-5); Neutrophil # 4.15 X10^3/uL (2.7-7.7); Neutrophil % 69.8 % (47-70); Platelet Count 200 K/mm3 (150-450); RBC Distribution Width SD 38.2 fl (35.1-43.9); Red Blood Count 4.13 M/mm3 (4.6-6.2); White Blood Count 5.9 K/mm3 (4.4-11.0)
[2024-04-17 14:00] LABS: Anion Gap 6 (5-15); BUN 6 mg/dL (7-18); BUN/Creat Ratio 7.9 RATIO (10-20); Calcium,Total 7.6 mg/dL (8.5-10.1); Chloride 109 mmol/L (98-107); Creatinine, Serum 0.76 mg/dL (0.70-1.30); EST Glomerular Filtration Rate 121 mL/min (>60); Est Glom Filt Rate - Afr Amer 146 mL/min (>60); Estimated Creatinine Clearance 108.01 ml/min; Glucose 120 mg/dL (74-106); Potassium 3.3 mmol/L (3.5-5.1); Sodium Level 141 mmol/L (136-145)
--- NOTE | 2024-04-17 15:24 | PCM.DC.SUM ---
Providers Date of Admission: 04/15/24 Date of Discharge: 04/17/24 Primary Care Physician: Dr. Guanaco Kay MD Consultations 04/15/24 17:14 Neurology [Consult: Tele-Neurology] Routine Consulting Provider: [facility] Reason for Consult: headache, has FERMENTER OPERATOR shunts due to chronic hydrocephalus EMERGENT Consult: No MD Notified: Yes Date Notified: 04/15/24 Time Notified: 17:40 Method of Notification: Answering Service Nursing Unit Staff Notify [facility] of Tele-Neurology Consult: Yes Reason For Visit: HEADACHE, RHEA Diagnosis Discharge Diagnosis (1) RHEA (acute kidney injury): Status: Acute Code(s): N17.9 - Acute kidney failure, unspecified (2) Dehydration: Status: Acute Code(s): E86.0 - Dehydration Medications at Discharge Home Medications carbamazepine 100 mg chewable tablet 250 mg (2.5 x 100 mg) PO TID #675 tabs 10/31/23 mecobalamin (vitamin B12) 1,000 mcg chewable tablet (B12 Active) 1,000 mcg PO DAILY #90 tabs 10/31/23 Hospital Course Operations None Procedures - (Shuntogram/CT brain) Summary of Care Provided Minutes Spent on Discharge: 45 Hospital Course: Mr. Ricketts is a 39-year-old white male who presented to the emergency department at [facility] [place] on 04/15/2024 with a headache. He has a history of cerebral palsy and congenital hydrocephalus for which she has a FERMENTER OPERATOR shunt. His last shunt revision was when he was 4 years old. He now follows with Dr. Kay here in [place] for his neurology care. On presentation he indicated that the headache was mainly in the back of his head and associate with some persistent neck pain. He also reported movement aggravated his headache and he had not been able to eat or drink much over the past couple weeks. His friend who is with him and is also his caregiver had called his neurologist on the morning of presentation because he felt the patient was not doing well and he was concerned. He went to see the neurologist who felt the patient was dehydrated and hypotensive so he referred him to the emergency department. The patient denies any fever or chills but reported his balance had been off as well and that is why he had not been walking as much at home. He denied any nausea and vomiting at the time presentation and his headache had improved with treatment in the emergency department. Vital signs were unremarkable on presentation and he was afebrile. His CBC was unremarkable. Chemistry panel showed hemoconcentration with starvation ketosis with hypernatremia, hyperchloremia, serum bicarb of 17 with an elevated anion gap, BUN of 37 and serum creatinine of 1.61. He appeared markedly dehydrated. After IV fluid administration his creatinine normalized as did his anion gap and his carbon dioxide trended up to 20. Imaging in the emergency department showed no acute process but did demonstrate a multitude of chronic abnormalities with no baseline for comparison and referral to neurology and neurosurgery was recommended. They did comment on asymmetric hydrocephalus which was mild on the right and moderate on the left as well as significant dilation of the fourth ventricle but no midline shift or visualized intracranial hemorrhage. A shuntogram was performed and showed intact FERMENTER OPERATOR shunt catheters. On admission neurology was consulted and evaluated the patient on the a.m. of 04/16/2024. I did receive a call from Dr. Shine from [facility] teleneurology and she indicated that she was concern for shunt now functioning and worsening hydrocephalus so she recommended transfer for neurosurgical evaluation. The patient was transferred to [facility] on 04/16/2024. [facility] thought they would have a bed on 04/16/2024 but a bed did not become available and the patient was still here on 04/17/2024. Neurology saw him again and was very concerned with an adequate drainage and still remembered ongoing transfer however after extensive counseling on why the patient needed to be transferred and have a neurosurgical evaluation the patient decided to leave [facility]. He was counseled extensively by myself, nursing staff, consulting neurologist, and his stepfather on why he should stay and have this addressed. The patient was alert and oriented x 3 and could voice the complications of him deciding to leave AGAINST MEDICAL ADVICE and he still decided to leave. AMA papers were signed. Discharge diagnoses: Headache Balance issues Hydrocephalus Concern for shunt malfunctioning Seizure disorder Dehydration RHEA-resolved Starvation ketosis-resolved History of cerebral palsy with chronic right upper extremity and right lower extremity contractures Physical Exam Narrative Patient states his headache is better. He was able to eat a little bit today. This morning indicated that he did not want to be transferred. We had long conversations and why he should be transferred to be evaluated by neurosurgery however the patient was adamant that he would not be and wanted to sign out AGAINST MEDICAL ADVICE. Const alert, oriented x3, no apparent distress and average body habitus; Negative for no limitations, healthy appearing or well nourished Constitutional Narrative: Thin, middle-aged, white male, sitting up in bed and seizure precautions, appears comfortable, does not appear toxic, caregiver at bedside General Appearance: cooperative, comfortable, well kempt and well developed Orientation / Consciousness: awake, oriented to person, oriented to place and oriented to time Exam Limitations: physical limitations Nutritional Appearance: thin HEENT normocephalic, head/scalp atraumatic, hearing grossly normal bilaterally and moist oral mucous membranes HEENT Narrative: Mallampati 2, no thrush Resp normal respiratory effort, no retractions, no use of accessory muscles and clear to auscultation bilaterally Auscultation: Negative for rales, rhonchi or wheezes Cardio regular rate, regular rhythm, S1 normal heart sound, S2 normal heart sound, no murmurs, no rub, no gallops and no clicks GI normal to inspection, nondistended, normoactive bowel sounds, soft to palpation and non-tender Extremity no clubbing, cyanosis or edema Extremity Narrative: Has chronic contractures of his right upper extremity due to history of cerebral palsy Neuro oriented x3 and No no focal motor deficits Neuro Narrative: Speech is clear but response times are slow, right upper extremity and left lower extremity contractures are noted Speech: Negative for speech normal Psych affect normal Psych Narrative: Patient more agitated today and wanting to leave AGAINST MEDICAL ADVICE Weight / BMI Weight Weight: 59.7 kg Body Mass Index (BMI) 21.2 ABG / Lab / Microbiology Data 04/17/24 13:21 04/17/24 13:21 Laboratory: Laboratory Results - last 24 hr 04/17/24 13:21: WBC 5.9, RBC 4.13 L, Hgb 12.1 L, Hct 35.7 L, MCV 86.4, MCH 29.3, MCHC 33.9, RDW Std Deviation 38.2, RDW Coeff of Nidia 12.0, Plt Count 200, MPV 10.8, Immature Gran % (Auto) 0.000, Neut % (Auto) 69.8, Lymph % (Auto) 23.1, Stanton % (Auto) 6.6, Eos % (Auto) 0.0, Baso % (Auto) 0.5, Absolute Neuts (auto) 4.2, Absolute Lymphs (auto) 1.37, Nucleated RBC % 0, Sodium 141, Potassium 3.3 L, Chloride 109 H, Carbon Dioxide 26.0, Anion Gap 6, BUN 6 L, Creatinine 0.76, Estim Creat Clear Calc 108.01, Est GFR (MDRD) Af Amer 146, Est GFR (MDRD) Non-Af 121, BUN/Creatinine Ratio 7.9 L, Glucose 120 H, Calcium 7.6 L Meaningful Use Info Meaningful Use Meaningful Use Diagnoses (Choose all that apply): None applicable Ischemic Stroke Statin Dosing Therapy Reference: STATIN DOSE THERAPY REFERENCE: * Patients > 75 years receive moderate or high dose statin therapy. * Patients 75 years or YOUNGER should receive HIGH intensity statin dose unless contraindicated. You will be required to document reason for non-treatment if statin daily dose does not meet guidelines. HIGH DOSE STATIN THERAPY DAILY Atorvastatin > than or = to 40 mg Rosuvastatin > than or = to 20 mg Amlodipine + Atorvastatin > than or = to 2.5/40 mg Ezetimibe + Simvastatin 10/80 mg Simvastatin 80mg Discharge Plan Admission Admit Date/Time: 04/15/24 14:42 Primary Reason for Your Visit: Headache/dehydration/poor appetite Attending Provider: Renuka Chavez Primary Care Provider: Guanaco Kay Consulting Providers: Jamie Carey; Lisbet Capone; Neeta White; Jacinta Montiel; Jenna Lunsford; Brannon Dominguez; Sury Rae; Hernandez Yoo; Ezekiel Francis; Marilee Thomas; Raimundo Merrill; Jazmine Shine; Avelina Cates; Cirilolyndon Ten; Klaus Vogt; Rubi Mujica; Ken Strange; Bess Chavez; Quinton Aleman; Di Eugene Discharge Orders/Prescriptions Prescriptions: No Action carbamazepine 100 mg tablet,chewable 250 mg PO TID Qty: 675 2RF B12 Active 1,000 mcg tablet,chewable 1,000 mcg PO DAILY Qty: 90 2RF Referrals / Follow Up: Guanaco Kay MD [Primary Care Provider] - Disposition Disposition (needs filled in before D/C Order can be placed): Against Medical Advice Charges/Coding Visit Charges Inpatient E&M: 09898 Subs Hosp L2
== END 2024-04-17 14:50 | disposition left against medical advice (07) | DRG 683 ==
LOC: ED 14:17 → PCU 14:59
PROVIDERS: Admitting Provider Student in an Organized Health Care Education/Training Program; Emergency Provider Emergency Medicine; PCP Psychiatry & Neurology Neurology; Visit Provider Internal Medicine
DX: N17.9 Acute kidney failure, unspecified (principal); E87.0 Hyperosmolality and hypernatremia; E87.20 Acidosis, unspecified; G40.909 Epilepsy, unspecified, not intractable, without status epilepticus; G80.9 Cerebral palsy, unspecified; Q03.9 Congenital hydrocephalus, unspecified; E83.52 Hypercalcemia; E86.0 Dehydration; E87.8 Other disorders of electrolyte and fluid balance, not elsewhere classified; R51.9 Headache, unspecified; Z98.2 Presence of cerebrospinal fluid drainage device
CPT/HCPCS: 36415; 70450; 75809; 80048; 80076; 80156; 85025; 99285; J7030; A4216